=== PATIENT | male | born 1965 | race African-American/Black ===

== ENCOUNTER → 2017-02-21 | Day surgery (SDC) | payer OTHER, BC ==
[~2017-02-21] MED LIST: ASPI325T PO; ATOR10TA PO; BARA1TAB PO; CINA30 PO; DARU600 PO; MESA800 PO; METO50TA PO; PHOS667C PO; PROPOFOL 500 MG/50 ML BTL IV ONE; RALT400 PO; RITO100 PO; SODIUM CHLOR 0.9% 1000 ML BAG IV ONE; TENO150T PO
--- NOTE | 2017-02-21 16:11 | GIPROC ---
[facility] [address], [address] COLONOSCOPY PROCEDURE REPORT EXAM DATE: 02/21/2017 PATIENT NAME: Soren Chaudhary MR #: [id number] BIRTHDATE: 1965 ENDOSCOPIST: Ovidio Malloy MD ORDER #: [id number] ICING MAKER: Raquel Fountain RN STATUS: outpatient INDICATIONS: The patient is a 51 yr old male here for a colonoscopy due to high risk patient with personal history of colonic polyps PROCEDURE PERFORMED: Colonoscopy with biopsy Colonoscopy with polypectomy MEDICATIONS: None and Per Anesthesia. PREP QUALITY: fair ESTIMATED BLOOD LOSS: None CONSENT: The patient understands the risks and benefits of the procedure and understands that these risks include, but are not limited to: sedation, allergic reaction, infection, perforation and/or bleeding. Alternative means of evaluation and treatment include, among others: physical exam, x-rays, and/or surgical intervention. The patient elects to proceed with this endoscopic procedure. medical equipment was checked for proper function. Hand hygiene and appropriate measures for infection prevention was taken. After the risks, benefits and alternatives of the procedure were thoroughly explained, Informed consent was verified, confirmed and timeout was successfully executed by the treatment team. A digital exam revealed no abnormalities of the rectum The EC-[id number] ([id number]) endoscope was introduced through the anus and advanced to the cecum, which was identified by both the appendix and ileocecal valve. The instrument was then slowly withdrawn as the colon was fully examined. COLON FINDINGS: 1 cm polyp transverse colon removed by snare. A band area with about 3-4 cm in the ascending colon with colitis Bx done. The colon mucosa was otherwise normal. Retroflexed views revealed small internal hemorrhoids The scope was then completely withdrawn from the patient and the procedure terminated. ADVERSE EVENTS: There were no complications. IMPRESSIONS: 1. 1 cm polyp transverse colon removed by snare 2. A band area with about 3-4 cm in the ascending colon with colitis Bx done 3. The colon mucosa was otherwise normal 4. Retroflexed views revealed small internal hemorrhoids 5. Revealed no abnormalities of the rectum RECOMMENDATIONS: 1. Await biopsy results. Biopsy results will not be ready for 7-10 days. If you don't hear from us in two weeks, call our office for results. 2. High fiber diet 3. Yearly hemoccult 4. RTC in 3 wks RECALL: Return 3 years Colonoscopy Ovidio Malloy MD eSigned: Ovidio Malloy MD 02/21/2017 4:11 PM cc:
== END | disposition home or self-care (01) ==
LOC: ESDC 13:03
PROVIDERS: ATTEND Hospitalist
DX: K63.3 Ulcer of intestine (principal); Z86.010 Personal history of colon polyps; D12.3 Benign neoplasm of transverse colon; K52.9 Noninfective gastroenteritis and colitis, unspecified; K64.8 Other hemorrhoids
CPT/HCPCS: 00810; 45380; 45385; 88305; J7030

== ENCOUNTER 2017-05-24 09:31 | Emergency (ER) | payer BC, OTHER ==
[~2017-05-24] VITALS: Ht 190.5 cm; Wt 111.0 kg
[~2017-05-24 09:31] MED LIST changes: -PROPOFOL 500 MG/50 ML BTL IV ONE; -SODIUM CHLOR 0.9% 1000 ML BAG IV ONE
[2017-05-24 09:33] VITALS: BP 140/85; PULSE 92; RESP 15; TEMP 98.2; O2SAT 98
--- NOTE | 2017-05-24 10:08 | PD ---
HPI Chief Complaint: Skin Problem Time Seen by Provider: 10:03 Travel History International Travel<30 days: No Contact w/Intl Traveler<30days: No Traveled to known affect area: No History of Present Illness HPI 51-year-old male presents emergency Department with complaint of burning and itching sensation to the bottom of his left foot that he woke up with this morning. Areas just below the toes. Patient is on dialysis and states he is concerned this may be related to dialysis. Denies paresthesias, loss of sensation, decreased range of motion, decreased strength to the affected extremity. Denies swelling, rash. Has not taken any medications or tried any treatments to the base symptoms. Symptoms are mild in severity. Has no other medical complaints. No other modifying factors or associated signs and symptoms. PFSH Past Medical History Hx Anticoagulant Therapy: No Anemia: Yes Autoimmune Disease: Yes Cardiovascular Problems: Yes High Cholesterol: Yes Chemotherapy: No Cerebrovascular Accident: No Diabetes: No Dialysis: Yes (, , TUE) Diminished Hearing: No Genitourinary: Yes Hypertension: Yes Kidney Stones: Yes Musculoskeletal: No Neurologic: Yes Reproductive: No Respiratory: No Immunizations Current: No Renal Failure: Yes Past Surgical History Abdominal Surgery: Yes Arteriovenous Shunt: Yes Other Surgery: Yes (DIALYSIS FISTULA) Social History Alcohol Use: Yes (SOCIALLY) Tobacco Use: No Substance Use: No Allergies-Medications (Allergen,Severity, Reaction): Coded Allergies: No Known Allergies (Unverified , 04/05/16) Reported Meds & Prescriptions Reported Meds & Active Scripts Active Asacol Hd (Mesalamine) 800 Mg Tabdr 800 Mg PO Q8HR 30 Days Metoprolol Tartrate 50 Mg Tab 50 Mg PO Q12H 30 Days Reported Aspirin 325 Mg Tab (Aspirin) 325 Mg Tab 325 Mg PO DAILY Sensipar 30 mg (Cinacalcet) 30 Mg Tab 1 Tab PO HS Atorvastatin 10 mg (Atorvastatin Calcium) 10 Mg Tab 10 Mg PO DAILY Prezista 600 Mg Tab (Darunavir) 600 Mg Tab 600 Mg PO BID Norvir (Ritonavir) 100 Mg Cap 100 Mg PO Q12 Isentress (Raltegravir) 400 Mg Tab 400 Mg PO BID Viread (Tenofovir Disoproxil Fumarate) Unknown Strength Tab 300 Mg PO WEEKLY ON TUESDAY NIGHT Baraclude (Entecavir) 1 Mg Tab 1 Mg PO WEEKLY ON SATURDAY NIGHT Phoslo (Calcium Acetate) 667 Mg Cap 667 Mg PO BID 2 CAPS PRN WITH SNACKS Review of Systems Except as stated in HPI: all other systems reviewed are Neg Physical Exam Narrative GENERAL: Well-nourished, well-developed black male patient, in no acute distress SKIN: Warm and dry. The bottom of the left foot is without erythema, edema; no rash noted; no sores or rash noted in between the toes. Left lower extremity is supple and non-tense with 2+ pedal pulses and sensory intact without erythema or edema. HEAD: Atraumatic. Normocephalic. EYES: Pupils equal and round. No scleral icterus. No injection or drainage. ENT: Mucosa pink and moist. Airway patent. NECK: Trachea midline. CARDIOVASCULAR: Regular rate. RESPIRATORY: No accessory muscle use. GASTROINTESTINAL: Flat. MUSCULOSKELETAL: No obvious deformities. No clubbing. No cyanosis. No edema. NEUROLOGICAL: Awake and alert. Oriented 3. No obvious cranial nerve deficits. Motor grossly within normal limits. Normal speech. PSYCHIATRIC: Appropriate mood and affect; insight and judgment normal. Data Data Last Documented VS Vital Signs Date Time Temp Pulse Resp B/P (MAP) Pulse Ox O2 Delivery O2 Flow Rate FiO2 05/24/17 09:33 98.2 92 15 140/85 (103) 98 MDM Medical Decision Making Medical Screen Exam Complete: Yes Emergency Medical Condition: No Differential Diagnosis Athlete's foot Narrative Course 51-year-old male presents with burning and itching sensation to the bottom of the left foot just below the toes. I do not see any rash or sores. The left lower extremity is supple and non-tense with 2+ pedal pulses and sensory intact and without erythema or edema. Patient is afebrile and nontoxic-appearing. He is a dialysis patient and has dialysis at 11 AM. Vital signs are stable and the patient is stable for outpatient follow-up and treatment. The patient has no urgent or emergent medical complaints. There is no emergent or urgent medical need at this time. I instructed the patient to follow up with their primary care provider. A medical screening exam was performed: At the time of evaluation the presenting medical condition was determined not to be of an emergent nature. The patient was given the option of receiving additional care, but declined. Patient was given options for additional community resources from which to obtain care. The Patient Has Been advised to seek medical attention for their presenting complaint. The patient has been advised to return to the ER at any time if an emergent condition develops. Diagnosis Primary Impression: Encounter for medical screening examination Condition: Stable Gena Contreras May 24, 2017 10:08
== END 2017-05-24 10:07 | disposition left against medical advice (07) ==
LOC: NEPK 09:31
DX: L29.9 Pruritus, unspecified (principal); D64.9 Anemia, unspecified; E78.00 Pure hypercholesterolemia, unspecified; I12.9 Hypertensive chronic kidney disease with stage 1 through stage 4 chronic kidney disease, or unspecified chronic kidney disease; N18.9 Chronic kidney disease, unspecified; Z87.442 Personal history of urinary calculi; Z79.82 Long term (current) use of aspirin; Z79.899 Other long term (current) drug therapy
CPT/HCPCS: 99281